=== PATIENT | male | born 1995 | race African-American/Black ===

== ENCOUNTER 2020-10-25 15:25 | Emergency (ER) | payer OTHER ==
[~2020-10-25] VITALS: Ht 167.6 cm; Wt 65.8 kg
--- NOTE | 2020-10-25 15:35 | NUR ---
24 years old male with history of anxiety presents to er with sob/anxiety vital stable, sat 97% room air no cough speak in full sentence, color intact.
[2020-10-25 15:42] VITALS: BP 128/69
--- NOTE | 2020-10-25 16:04 | NUR ---
patient condition stable d/c home with instructions after care reviewed understood left er ambulatory with steady gait.
== END 2020-10-25 16:46 | disposition home or self-care (01) ==
LOC: ER 15:32
DX: F41.0 Panic disorder [episodic paroxysmal anxiety] (principal); J45.909 Unspecified asthma, uncomplicated

== ENCOUNTER 2021-07-13 13:04 | Emergency (ER) | payer SELFPAY ==
[~2021-07-13] VITALS: Ht 167.6 cm; Wt 69.4 kg
[2021-07-13 13:16] VITALS: BP 131/59
[2021-07-13] MEDS ORDERED: AMOX-430 PO (13:40)
[2021-07-13] MEDS ORDERED: MOME17SP BNOSTRILS (13:40)
[2021-07-13] MEDS ORDERED: LORA10TA7 PO (13:40)
--- NOTE | 2021-07-13 13:44 | NUR ---
Patient discharged to home in stable condition. Written and verbal after care instructions given. Patient verbalizes understanding of instruction.
== END 2021-07-13 13:45 | disposition home or self-care (01) ==
LOC: ER 13:15
DX: J32.0 Chronic maxillary sinusitis (principal); F41.9 Anxiety disorder, unspecified